=== PATIENT | female | born 1985 | race Caucasian/White ===

== ENCOUNTER 2017-02-15 17:05 | Emergency (ER) | payer OTHER ==
[~2017-02-15] VITALS: Ht 162.6 cm; Wt 86.0 kg
[2017-02-15 17:07] VITALS: BP 156/87; PULSE 60; RESP 20; TEMP 98; O2SAT 97
--- NOTE | 2017-02-15 18:43 | PD ---
HPI Chief Complaint: Injury Time Seen by Provider: 18:43 Travel History International Travel<30 days: No Contact w/Intl Traveler<30days: No Traveled to known affect area: No History of Present Illness HPI 31-year-old female presents to the emergency department for evaluation of left shoulder pain after fall that occurred on Thursday, 5 days ago. She states she tripped and fell in a hole and fell on her left shoulder. She denies hitting her head or any loss of consciousness. She complains of left neck pain, but no midline neck pain. No back pain. No chest pain. No abdominal pain. No nausea or vomiting. She has no chronic medical problems and takes no prescribed medications. She has been using icy hot for the pain. She has no other complaints. [facility] Social History Alcohol Use: No Tobacco Use: Yes Substance Use: No Allergies-Medications (Allergen,Severity, Reaction): Coded Allergies: No Known Allergies (Unverified , 02/15/17) Reported Meds & Prescriptions Reported Meds & Active Scripts Active No Active Prescriptions or Reported Medications Review of Systems Except as stated in HPI: all other systems reviewed are Neg Physical Exam Narrative GENERAL: Well-developed well-nourished female patient, ambulatory and in no acute distress. Afebrile. SKIN: Warm and dry. HEAD: Normocephalic. Atraumatic. EYES: No scleral icterus. No injection or drainage. NECK: Supple, trachea midline. No JVD or lymphadenopathy. CARDIOVASCULAR: Regular rate and rhythm without murmurs, gallops, or rubs. Left radial pulse is 2+. RESPIRATORY: Breath sounds equal bilaterally. No accessory muscle use. GASTROINTESTINAL: Abdomen soft, non-tender, nondistended. MUSCULOSKELETAL: No cyanosis, or edema. Patient has tenderness over left shoulder and left trapezius muscle. Normal grasp strength in the left hand. BACK: Nontender without obvious deformity. No CVA tenderness. No midline cervical spine tenderness. Data Data Last Documented VS Vital Signs Date Time Temp Pulse Resp B/P Pulse Ox O2 Delivery O2 Flow Rate FiO2 02/15/17 17:07 98.0 60 20 156/87 97 Room Air Orders Shoulder, Complete (>2vws) (02/15/17 ) [facility] Medical Decision Making Medical Screen Exam Complete: Yes Emergency Medical Condition: Yes Medical Record Reviewed: Yes Differential Diagnosis Muscle strain versus spasm versus sprain versus fracture Narrative Course 31 year old female presents to the emergency department for evaluation of left shoulder pain after a fall 5 days ago. Physical exam is reassuring. X-ray left shoulder is ordered and pending. Care will be transitioned to RACHEAL Norton, for further evaluation and disposition. Scripts No Active Prescriptions or Reported Meds Tomasa Melendez Feb 15, 2017 18:43
--- NOTE | 2017-02-15 19:40 | RADRPT ---
EXAM DATE/TIME: 02/15/2017 19:07 [facility] COMPARISON: No previous studies available for comparison. INDICATIONS : Pain in left shoulder starting yesterday, fall five days ago. MEDICAL HISTORY : None. SURGICAL HISTORY : None. ENCOUNTER: Initial ACUITY: 4 - 6 days PAIN SCORE: 5/10 LOCATION: Left shoulder. FINDINGS: Multiple view examination of the left shoulder demonstrates no evidence of fracture or dislocation. The glenohumeral and acromioclavicular joints are maintained. There is normal range of motion betwee n internal and external rotation. Bony mineralization is normal. CONCLUSION: Unremarkable examination of the left shoulder. Gianfranco Jarrell MD on February 15, 2017 at 19:38 Board Certified Radiologist. This report was verified electronically.
--- NOTE | 2017-02-15 19:56 | PD ---
Physical Exam Narrative Patient signed out to me pending x-ray results. Please see previous provider's note for full H&P. Patient resting comfortably in bed in no acute distress. Full range of motion of left shoulder noted. Patient has concerns over her belly to her job secondary to doing a lot lifting at her job and is requesting a note for a day or 2 off to rest her shoulder. Denies . Data Data Last Documented VS Vital Signs Date Time Temp Pulse Resp B/P Pulse Ox O2 Delivery O2 Flow Rate FiO2 02/15/17 17:07 98.0 60 20 156/87 97 Room Air Orders Shoulder, Complete (>2vws) (02/15/17 ) [facility] Supervised Visit with [facility]RIC: No Narrative Course Patient in no obvious distress upon re-evaluation. All pertinent Radiology result(s) discussed with patient. Patient was asked if they wanted to speak to my attending, which the patient did not wish to do at this time. Any questions/ concerns in reference to patient diagnosis/condition discussed and clarified prior to patient's discharge. Reinforced sheer importance of close follow up with patient's primary physician or primary care clinic and/or orthopedics. Instructed patient to return to ED immediately, if symptoms return/worsen. Pt showed understanding of above instructions. Further instructions and recommendations were detailed in discharge paperwork. Pt ambulated without difficulty out of ED at discharge. Diagnosis Primary Impression: Contusion of left shoulder, initial encounter Referrals: Shane Huitron MD Patient Instructions: Contusion in Adults (ED), General Instructions Departure Forms: Work Release Enter return to work date: Feb 18, 2017 Additional Instruction: Follow-up with your primary care physician and/or orthopedics in 2-3 days for reevaluation. Take all medication as prescribed. Apply ice to affected area 20 minutes per hour as needed for pain. Return to the emergency department if symptoms get worse. Med/Other Pt SpecificInfo: Prescription(s) given Scripts Cyclobenzaprine (Flexeril)10 Mg Tab10 Mg PO Q8HR PRN (MUSCLE PAIN) #12 TAB Ref 0 Prov:Anni Graves MD 02/15/17 Naproxen (Naprosyn)500 Mg Bat193 Mg PO Q12HR PRN (PAIN SCALE 1 TO 10) #14 TAB Ref 0 Prov:Anni Graves MD 02/15/17 Disposition: 01 DISCHARGE HOME Condition: Stable Uriah Lynch Feb 15, 2017 19:56
[2017-02-15] MEDS ORDERED: NAPR500 PO (19:58)
[2017-02-15] MEDS ORDERED: CYCL1TAB29 PO (19:58)
== END 2017-02-15 20:09 | disposition home or self-care (01) ==
LOC: NEPB 17:05
DX: S40.012A Contusion of left shoulder, initial encounter (principal); M54.2 Cervicalgia; Z72.0 Tobacco use; W01.0XXA Fall on same level from slipping, tripping and stumbling without subsequent striking against object, initial encounter
CPT/HCPCS: 73030; 99283